=== PATIENT | male | born 1960 | race Caucasian/White ===

== ENCOUNTER 2020-03-01 00:44 | Outpatient (CLI) | payer BC, SELFPAY ==
[2020-03-01 18:59] LABS: SARS-CoV-2 RNA PCR Negative
== END 2020-03-01 00:45 | disposition home or self-care (01) ==
LOC: ANHCOVIDDT 00:44
PROVIDERS: PCP Internal Medicine; Visit Provider Internal Medicine Gastroenterology
DX: Z01.818 Encounter for other preprocedural examination (principal); Z20.828 Contact with and (suspected) exposure to other viral communicable diseases
CPT/HCPCS: 87635; C9803; U0003

== ENCOUNTER → 2020-03-04 08:06 | Day surgery (SDC) | payer BC, SELFPAY ==
[2020-02-27 10:42] VITALS: BMI 28.3
--- NOTE | 2020-03-03 09:56 | WPDANESEPPF ---
Anes - Initial Pre Proc Eval Procedure: Operation Date: 03/04/20 12:45 Proposed Procedures p Screening Colonoscopy - Joon Mathis MD Date/Time: 03/03/20 09:56 Surgeon: Joon Mathis MD Pre Op Diagnosis: neoplasm screening Patient Data Age: 59 Gender: M Height: 1.7 m Weight: 82 kg Allergies Allergy/AdvReac Type Severity Reaction Status Date / Time No Known Allergies Allergy Verified 02/27/20 10:51 Home Medications Medication Instructions Recorded Confirmed Type aspirin [Adult Low Dose Aspirin] 81 mg PO DAILY 02/27/20 02/27/20 History fexofenadine [Lena] 180 mg PO DAILY PRN 02/27/20 02/27/20 History sodium,potassium,mag sulfates 17.5 See Rx Instructions PO .COMPLEX 02/29/20 Rx gram-3.13 gram-1.6 gram oral soln #354 ml Patient hx anesthesia problems: none Family hx anesthesia problems: none PMFSH Social History Social History Smoking packs per day: 0.5 Smoking cigarettes per day: 10.0 Years smoked: 8 Smoking pack-years: 4.00 Smoking status: Former smoker Tobacco type: cigarettes Alcohol intake: current Drinks per week: 5 Substance use: never Substance use type: does not use Living arrangements: with family Spiritual care concerns: No Anes - Eval Final PreProcedure Day of Procedure 03/03/20 09:56 Patient weight: overweight Heart: regular rate and rhythm Lungs: clear to auscultation and normal air movement Airway: Mallampati scale class II Neurological: alert and oriented Last oral intake: >/= 8 hours ASA classification: II Emergent: no Anesthetic plan: proceed Anesthesia type and monitoring: general GIVS and standard monitoring Informed Consent: The patient's anesthetic plan and its attendant risks and benefits were discussed with the patient/family/POA. Questions were solicited and answers provided to the satisfaction of the patient/family/POA.
[2020-03-04 10:37] VITALS: BP 154/101; PULSE 90; RESP 18; TEMP 36.3; O2SAT 100; BMI 28.1
[2020-03-04] MEDS: LACTATED RINGERS 1,000 ML 150 ML IV CONT (10:50)
--- NOTE | 2020-03-04 11:33 | PM.HPGS ---
History of Present Illness History of Present Illness Consent: Risks, benefits, and alternatives have been discussed and questions answered. Patient agrees to proceed with procedure. Chief complaint: neoplasm screening Narrative: Sae Torres is a 59 year old male here for first screening colonoscopy Review of Systems Constitutional: Constitutional: Denies headache(s) and Denies weakness Eyes: Eyes: Denies blurry vision ENT: Reports Normal hearing present, Denies headache(s) and Denies neck pain Cardiovascular: Cardiovascular: Denies chest pain and Denies dyspnea Respiratory: Respiratory: Denies dyspnea Gastrointestinal: Gastrointestinal: Reports no additional gastrointestinal complaints Genitourinary: Genitourinary: Denies dysuria Musculoskeletal: Musculoskeletal: Denies neck pain Integumentary/Breasts: Skin/Breast: Denies dry skin Neurologic: Reports Normal hearing present, Denies headache(s) and Denies weakness Psychiatric: Psychiatric: Denies anxiety Endocrine: Endocrine: Denies change in body appearance Hematologic/Lymphatic: Hematologic/Lymphatic: Denies easy bleeding Allergic/Immunologic: Allergic/Immunologic: Denies urticaria [facility] Past Medical History Medical History (Updated 03/04/20 @ 11:33 by Joon Mathis MD) Colon cancer screening Social History Social History Smoking packs per day: 0.5 Smoking cigarettes per day: 10.0 Years smoked: 8 Smoking pack-years: 4.00 Smoking status: Former smoker Tobacco type: cigarettes Alcohol intake: current Drinks per week: 5 Substance use: never Substance use type: does not use Living arrangements: with family Spiritual care concerns: No Meds Home Medications and Allergies Home Medications Medication Instructions Recorded Confirmed Type aspirin [Adult Low Dose Aspirin] 81 mg PO DAILY 02/27/20 02/27/20 History fexofenadine [Lena] 180 mg PO DAILY PRN 02/27/20 02/27/20 History sodium,potassium,mag sulfates 17.5 See Rx Instructions PO .COMPLEX 02/29/20 Rx gram-3.13 gram-1.6 gram oral soln #354 ml Allergies Allergy/AdvReac Type Severity Reaction Status Date / Time No Known Allergies Allergy Verified 02/27/20 10:51 Vital Signs Vital Signs - 24 hr 03/04/20 10:37 Temperature 97.3 F L Pulse Rate 90 Respiratory Rate 18 Blood Pressure 154/101 H Pulse Oximetry 100 Exam Const: General: comfortable and no acute distress HENMT: General nose exam: Normal nares present Eyes: General: appearance normal, both eyes and all related structures Neck: Neck: no JVD Resp: Auscultation: clear to auscultation bilaterally Cardio: Rate: regular rate Rhythm: regular rhythm GI: Inspection: non-distended GI Palp: Yes Soft to palpation Skin: General skin exam: normal color Neuro: General: gait normal Speech: normal speech Extrem: General: normal to inspection Psych: Mental Status: mental status grossly normal Assessment and Plan Assessment and plan (1) Colon cancer screening: Code(s): Z12.11 - Encounter for screening for malignant neoplasm of colon Status: Acute Assessment and Plan: will proceed with colonoscopy
[2020-03-04 11:54] VITALS: BP 102/75; PULSE 80; RESP 21; O2SAT 94
[2020-03-04 12:04] VITALS: BP 104/76; PULSE 72; RESP 19; O2SAT 96
[2020-03-04 12:14] VITALS: BP 107/78; PULSE 71; RESP 22; O2SAT 97
== END ==
PROVIDERS: PCP Internal Medicine; Visit Provider Internal Medicine Gastroenterology
PROC: 0DJD8ZZ Inspection of Lower Intestinal Tract, Via Natural or Artificial Opening Endoscopic (ICD-10-PCS; CPT 45378; principal; 2020-03-04 12:45)
DX: Z12.11 Encounter for screening for malignant neoplasm of colon (principal); D12.2 Benign neoplasm of ascending colon; K57.30 Diverticulosis of large intestine without perforation or abscess without bleeding; K64.8 Other hemorrhoids; Z79.82 Long term (current) use of aspirin; Z87.891 Personal history of nicotine dependence
CPT/HCPCS: 45385; 88305; J2704; J7120

== ENCOUNTER 2024-12-26 03:01 | Day surgery (SDC) | payer BC, SELFPAY ==
--- OUTSIDE RECORDS SUMMARY | 2012-06-12 06:40 | XMS_ITS | Continuity of Care Document ---
Author Organization [facility] Address [id number] [place] [address] Phone Care Team Providers Care Clinical Pharmacist Name Role Phone Alexandro Doran MD Unavailable Unavailable Medications Medication Instructions Dosage Effective Dates (start - stop) Status Comments NASONEX 50 MCG NASAL SPRAY spray 2 spray by intranasal route every day in each nostril - Active PATADAY 0.2% EYE DROPS instill 1 drop by ophthalmic route every day into affected eye(s) - Active FEXOFENADINE HCL 180 MG TABLET 1 QD-daily - Active NASONEX 50 MCG NASAL SPRAY spray 2 spray by intranasal route every day in each nostril - No Longer Active Advance Directives Directive Yes / No Effective Date File Name No Information Encounters Encounter Description Practice Location Reason(s) For Visit Diagnoses Date Provider Providers Copied on Encounter [facility], [address], [place], [place], [id number], [place] tel:[phone] [facility] Allergic rhinitis due to other allergenOther chronic allergic conjunctivitis 3 Espinoza Mc. [address], [id number] , . tel: [phone] Referring Provider: Tony Guy, [facility] [place] [address], [place], [address]. tel:[phone] [facility], [id number] [place] [address], [id number], tel:[phone] [facility] Allergic rhinitis due to other allergenOther chronic allergic conjunctivitis 2 Espinoza Alexandro. [address] [place] [address], [id number] , . tel: [phone] Referring Provider: Tony Guy, [address] [place] [address], [facility]. tel:[phone] [facility] [employer], [address] [place] [address], [id number], tel:[phone] [facility] Allergic rhinitis due to other allergenOther chronic allergic conjunctivitis May- 1 Espinoza Alexandro. [address] [place] [address], [id number] , . tel: [phone] Referring Provider: Tony Guy, [address] [place] [address], [facility]. tel:[phone] [facility] [employer], [address] [place] [address], [id number], tel:[phone] [facility] ALLERGIC RHINITIS NECAC ATOPIC CONJUNCTIVITIS 0 Espinoza Mc. [address] [place] [address], [id number] , . tel: [phone] Family History Family Member Type Diagnosis Age At Onset No Information Payers Payer name Insurance type Covered democrat ID Authoriza tion(s) No Information Social History Type Description Quantity Date Captured Comments Alcohol Use Details Unknown Caffeine Use Details Unknown Tobacco Use Status No Information Smoking Status Never smoker Sex Male Vital Signs Date / Time: Height Weight BMI Pulse Rate Blood Pressure Temperature Respiratory Rate Body Surface Area Head Circumference Head Circ. Percentile Wt./Andres. Percentile BMI percentile Pulse Ox Inhaled Ox 11:50 AM 67.00 in 175.00 lbs 27.4 1 kg/m eter (2) 59 /min 126/85 mm[Hg] Chief Complaint And Reason For Visit No Information Reason For Referral Reason For Referral No Information History Of Present Illness Encounter Date Complaint History Of Prese nt Illness No Information Functional Status Date Functional Assessmen t No Information Instructions Date Instruction Additional Infor mation No Information Assessments Type Assessment Date No Information Patient Care Teams Name Effective Dates (start - stop) Status Members No Information
--- OUTSIDE RECORDS SUMMARY | 2013-08-29 05:45 | XMS_ITS | Continuity of Care Document ---
Author Organization [facility] Address [address] [place] [address] Phone Care Team Providers Care Bundle Sorter Name Role Phone Pato Santana MD Unavailable Unavailable Allergies, Adverse Reactions, Alerts Substance Reaction Status Criticality No Known Allergies Active No Inform ation Medications Medication Instructions Dosage Effective Dates (start - stop) Status Comments No Drug Therapy Prescribed Procedures Procedure Date OFFICE/OUTPATIENT VISIT NEW Advance Directives Directive Yes / No Effective Date File Name No Information Encounters Encounter Description Practice Location Reason(s) For Visit Diagnoses Date Provider Providers Copied on Encounter [facility], [address] [place] [address], [facility], tel:[phone] [facility] Gastrocnemius strain 4 Esther Whyte. [address] [place] [address], [id number] . tel: [phone] OFFICE/OUTPAT IENT VISIT [facility], [address] [place] [address] [address], [place], [address], tel:[phone] [facility] Rt Tib/Fib Injury (chief complaint) Gastrocnemius strain 4 Esther Whyte. [address] [place], [place], [id number] . tel: [phone] Family History Family Member Type Diagnosis Age At Onset No Information Payers Payer name Insurance type Covered alliance party ID Authoriza tion(s) No Information Social History Type Description Quantity Date Captured Comments Sex Male Smoking Status No Information Chief Complaint And Reason For Visit No Information Reason For Referral Reason For Referral No Information Plan Of Treatment Date Type Action Status Referral Ordered: AMISH SANDERSON 2 VIEWS RT ordered History Of Present Illness Encounter Date Complaint History Of Prese nt Illness No Information Functional Status Date Functional Assessmen t No Information Medications Administered Medication Instructions Dosage Effective Dates (start - stop) Status Comments No Drug Therapy Prescribed Instructions Date Instruction Additional Infor mation No Information Assessments Type Assessment Date assessment Gastrocnemius strain Patient Care Teams Name Effective Dates (start - stop) Status Members No Information
[2024-12-18 11:11] VITALS: BMI 27.6
--- OUTSIDE RECORDS SUMMARY | 2024-12-26 03:05 | XMS_ITS | Patient Health Record ---
Author Organization [facility] [place] ([address]) Address [address] [place] [address] Care Team Providers Care Coin Machine Assembler Name Role Phone Eulalia Whalen Primary Care Provider UnavailNivia Barker Unavailable [phone] Allergies Allergen (clinical drug ingredient) Drug/Non Drug Allergy documented on EMR Reaction Allergy Type Onset Date Status None (uncoded) Unknown Allergy Activ e Results Component Value Reference Range Notes RESPIRATORY ALLERGY PROFILE REGION VIII: [place], [place] Reviewed date:12/20/2024 04:27:55 PM Interpretation:Normal Performing Lab:DINESH, [facility], [address] [facility] [place], [address] Tray Almonte MD Notes/Report: FASTING: NO FASTING:NO NON-FASTING DERMATOPHAGOIDES PTERONYSSIN US (D1) IGE <0.10 CLASS 0 DERMATOPHAGOIDES FARINAE (D2 ) IGE <0.10 CLASS 0 PENICILLIUM NOTATUM (M1) IGE <0.10 CLASS 0 CLADOSPORIUM HERBARUM (M2) IGE <0.10 CLASS 0 ASPERGILLUS FUMIGATUS (M3) IGE <0.10 CLASS 0 ALTERNARIA ALTERNATA (M6) IGE 0.81 CLASS 2 COCKROACH (I6) IGE <0.10 CLASS 0 MAPLE (BOX ELDER) (T1) IGE 1.40 CLASS 2 MOUNTAIN CEDAR (T6) IGE 0.22 CLASS 0/1 WALNUT TREE (T10) IGE 1.80 CLASS 2 [place] (T11) IGE 1.45 CLASS 2 COTTON[place]OD (T14) IGE 1.04 CLASS 2 WHITE GIBSON (T15) IGE 2.23 CLASS 2 OAK (T7) IGE 1.75 CLASS 2 ELM (T8) IGE 1.80 CLASS 2 HICKORY/PECAN TREE (T22) IGE 2.08 CLASS 2 WHITE MULBERRY (T70) IGE 0.17 CLASS 0/1 BERMUDA GRASS (G2) IGE 3.14 CLASS 2 JENNIFER GRASS (G6) IGE 4.61 CLASS 3 COMMON RAGWEED (SHORT) (W1) IGE 2.80 CLASS 2 ROUGH PIGWEED (W14) IGE 0.52 CLASS 1 TUNISIAN THISTLE (W11) IGE 0.83 CLASS 2 ROUGH DALTON ELDER (W16) IGE 0.59 CLASS 1 MOUSE URINE PROTEINS (E72) IGE <0.10 CLASS 0 IMMUNOGLOBULIN E 227 <CC=289 kU/L CAT DANDER (E1) IGE 1.11 CLASS 2 DOG DANDER (E5) IGE 0.41 CLASS 1 CBC (INCLUDES DIFF/PLT) Reviewed date:12/20/2024 04:26:59 PM Interpretation:Normal Performing Lab:[place], [facility], [address], [place], [address] Tray Almonte MD Notes/Report: NON-FASTING FASTING:NO FASTING: NO WHITE BLOOD CELL COUNT 7.4 3.8-10.8 Thousand/ uL RED BLOOD CELL COUNT 5.03 4.20-5.80 Million/uL HEMOGLOBIN 15.2 13.2-17.1 g/dL HEMATOCRIT 46.2 38.5-50.0 % MCV 91.8 80.0-100.0 fL MCH 30.2 27.0-33.0 pg MCHC 32.9 32.0-36.0 g/dL For adults, a slight decrease in the calculated MCHC value (in the range of 30 to 32 g/dL) is most likely not clinically significant; however, it should be interpreted with caution in correlation with other red cell parameters and the patient's clinical condition. RDW 12.6 11.0-15.0 % PLATELET COUNT 204 140-400 Thousand/uL MPV 11.1 7.5-12.5 fL ABSOLUTE NEUTROPHILS 4433 3414-3152 cells/uL ABSOLUTE LYMPHOCYTES 2198 850-3900 cells/uL ABSOLUTE MONOCYTES 525 200-950 cells/uL ABSOLUTE EOSINOPHILS 192 15-500 cells/uL ABSOLUTE BASOPHILS 52 0-200 cells/uL NEUTROPHILS 59.9 LYMPHOCYTES 29.7 MONOCYTES 7.1 EOSINOPHILS 2.6 BASOPHILS 0.7 INTERPRETATION Reviewed date:12/20/2024 04:27:23 PM Interpretation:Interpretation Performing Lab:DINESH [facility], [address] [place], [address] Tray Almonte MD Notes/Report: NON-FASTING FASTING:NO FASTING: NO INTERPRETATION Specific Level of Allergen IGE Class kU/L Specific IGE Antibody ----- --------- 0 <0.10 Absent/Undetectable 0/1 0.10-0.34 Very Low Level 1 0.35-0.69 Low Level 2 0.70-3.49 Moderate Level 3 3.50-17.4 High Level 4 17.5-49.9 Very High Level 5 50-100 Very High Level 6 >100 Very High Level The clinical relevance of allergen results of 0.10-0.34 kU/L are undetermined and intended for specialist use. Allergens denoted with a include results using one or more analyte specific reagents. In those cases, the test was developed and its analytical performance characteristics have been determined by [facility]. It has not been cleared or approved by the U.S. Food and Drug Administration. This assay has been validated pursuant to the CLIA regulations and is used for clinical purposes. CAT DANDER COMPONENT PANEL Reviewed date:12/20/2024 04:27:11 PM Interpretation:Normal Performing Lab:DINESH [facility], [address] [place], [address] Tray Almonte MD Notes/Report: NON-FASTING FASTING:NO FASTING: NO Fel d 1 (e94) IgE 1.59 <0.10 kU/L Fel d 2 (e220) IgE <0.10 <0.10 kU/L Fel d 4 (e228) IgE <0.10 <0.10 kU/L Fel d 7 (e231) IgE <0.10 <0.10 kU/L Component testing for samples with positive extract results may help to rule out cross-reactivity and confirm that allergy is present. The more components a patient is sensitized to, the higher the likelihood of a reaction when exposed to cats. DOG DANDER COMPONENT PANEL Reviewed date:12/20/2024 04:27:06 PM Interpretation:Normal Performing Lab:DINESH, [facility], [address], [place], [address] Tray Almonte MD Notes/Report: NON-FASTING FASTING:NO FASTING: NO Can f 1 (e101) IgE <0.10 <0.10 kU/L Can f 2 (e102) IgE <0.10 <0.10 kU/L Can f 3 (e221) IgE <0.10 <0.10 kU/L Can f 4 (e229) IgE <0.10 <0.10 kU/L Can f 5 (e226) IgE <0.10 <0.10 kU/L Can f 6 (e230) IgE <0.10 <0.10 kU/L Component testing for samples with positive extract results may help to rule out cross-reactivity and confirm that allergy is present. The more components a patient is sensitized to, the higher the likelihood of a reaction when exposed to dogs. Sensitization to Can f 5 only may indicate that the patient can tolerate female dogs. Reason For Referral No Information Medications Medication SIG (Take, Route, Frequency, Duration) Notes Start Date End Date Status Lisinopril 10 MG Oral; Duration: 30 Days Active Rosuvastatin Calcium 5 MG TAKE 1 TABLET BY MOUTH AT BEDTIME Oral; Duration: 30 Days Active EPINEPHrine 0.3 MG/0.3ML Injection; Dura tion: 1 Days Active Cetirizine HCl 10 MG 1 tablet Orally Onc e a day; Duration: 30 days 12/17/2024 Active Azelastine HCl 137 MCG/SPRAY 2 sprays in each nostril Nasally Twice a day; Duration: 30 days 12/17/2024 Active Clarinex-D 12 Hour 2.5-120 MG 1 tablet Orally every 12 hrs Active Immunizations Vaccine Route Administration Date Status Comme nts NOC Tdap Unknown 11/24/2022 Administered Portal Infor mation NOC Tdap Unknown 11/24/2022 Administered Portal Infor mation [facility] Quadrivalent Unknown 01/06/2023 Administered Po rtal Information [facility] Quadrivalent Unknown 01/06/2023 Administered Po rtal Information Social History Tobacco Use: Social History Observation Description Date Details (start date - stop date) Never Smoker NA - NA Sex Assigned At : Social History Observation Description Sex Assigned At Male Tobacco Control (Standard) Question Answer Notes Tobacco use: Nonsmoker AUDIT-C (Standard) Question Answer Notes Did you have a drink contain ing alcohol in the past year? Yes How often did you have a dri nk containing alcohol in the past year? 2 to 3 times a week (3 points) How many drinks did you have on a typical day when you were drinking in the past year? 3 or 4 drinks (1 point) How often did you have six o r more drinks on one occasion in the past year? Never (0 point) Points 4 Interpretation Positive Problems Problem Type SNOMED Code ICD Code Onset Dates Problem Status W/U Status Risk Notes Problem Allergic rhinitis caused by pollen (disorder) (44886446) Allergic rhinitis due to pollen (J30.1) Active confirmed Problem Chronic rhinitis (63494301) Chronic rhinitis (J31.0) Active confirmed Problem Hypertrophy of nasal turbinates (43552006) Hypertrophy of nasal turbinates (J34.3) Active confirmed Problem Dysphagia (93389874) Dysphagia, unspecified (R13.10) Active confirmed Vital Signs Oximetry 98 % 12/17/2024 Blood pressure diastolic 81 mm Hg 12/17/2024 Height 67 in 12/17/2024 Blood pressure systolic 121 mm Hg 12/17/2024 Weight 182.0 lbs 12/17/2024 BMI 28.5 kg/m2 12/17/2024 Encounters Encounter Location Date Provider Diagnosis [facility] [address] [place] [address] 12/17/2024 Nivia Elizalde Hypertrophy of nasal turbinates J34.3 ; Allergic rhinitis due to pollen J30.1 ; Chronic rhinitis J31.0 ; Dysphagia, unspecified R13.10 and Elevated blood-pressure reading, without diagnosis of hypertension R03.[address] [address] 12/20/2024 Nivia Elizalde Assessments Encounter Date Diagnosis (ICD Code) Assessment Notes Treatment Notes Treatment Clinical Notes Section Notes 12/17/2024 Allergic rhinitis due to pollen (ICD-10 - J30.1) Sae has history of ARC, previously underwent testing with Dr. Doran. His results showed positive results to seasonal and perennial allergens. - Sae's primary complaint today is food/pill sticking, please see plan above. In regard to strictly his upper airway symptoms, he feels these are well-controlled . - We will obtain ImmunoCaps. He is scheduled for an endoscopy next week, if symptoms are due to EoE, we plan to update his SPT. - Discussed trial of Zyrtec and azelastine. - Return in 4-6 weeks for further evaluation and management 12/17/2024 Hypertrophy of nasal turbinates (ICD-10 - J34.3) See plan above 12/17/2024 Chronic rhinitis (ICD-10 - J31.0) See plan above 12/17/2024 Dysphagia, unspecified (ICD-10 - R13.10) Sae presents today with a history of food/pill sticking ongoing for my whole life. He has noticed worsening symptoms lately. He discussed with his PCP, who suggested GI evaluation. Sae is scheduled for an endoscopy next week. - I highly suspect EoE based on Sae's description of symptoms and history of atopic disease. Given his endoscopy is next week, we will await results. We briefly discussed EoE and potential treatment options pending the results of his endoscopy. - Discussed strict journal for symptoms. - Return in 4-6 weeks as above 12/17/2024 Elevated blood-pressure reading, without diagnosis of hypertension (ICD-10 - R03.0) BP elevated today without symptoms of urgency or emergency. Continue serial checks and follow-up with PCP 12/17/2024 Other Plan Of Treatment Pending Test Test Name Order Date CBC (INCLUDES DIFF/PLT) 12/17/2024 Next Appt Details Provider Name:Nivia mota, 01/21/2025 09:30:00 AM, [address], [address], [place], [address], Insurance Providers Payer Name Payer Address Payer Phone Subscriber Number Group Number Insured Name Patient Relationship to Insured Coverage Start Date Coverage End Date [facility] [address] [place] [address] [id number] Sae Torres Self - patient is the insured Medical (General) History Surgical History Surgery Date(Month/Year) None Hospitalization History Reason Date(Month/Year) None
--- NOTE | 2024-12-26 07:12 | WPDANESEPPF ---
Anes - Initial Pre Proc Eval Procedure: Operation Date: 12/26/24 12:30 Proposed Procedures p EGD & Screening Colonoscopy - Joon Mathis MD Date/Time: 12/26/24 07:12 Surgeon: Joon Mathis MD Pre Op Diagnosis: Dysphagia, unspecified Patient Data Age: 64 Gender: M Height: 1.7 m Weight: 80 kg Allergies Allergy/AdvReac Type Severity Reaction Status Date / Time grass pollen Allergy Mild Congested Verified 12/26/24 11:02 tree and shrub pollen Allergy Mild congestion Verified 12/26/24 11:02 rag weed Allergy Mild congestion Uncoded 12/18/24 11:09 Home Medications ?Medication ?Instructions ?Recorded ?Confirmed ?Type aspirin 81 mg tablet 81 mg PO DAILY 02/27/20 12/26/24 History lisinopril 10 mg tablet 10 mg PO DAILY #90 tabs 08/13/24 12/26/24 Rx loratadine 10 mg tablet (Claritin) 10 mg PO DAILY 11/05/24 12/26/24 History rosuvastatin 5 mg tablet 5 mg PO .hs #90 tabs 11/22/24 12/26/24 Rx cetirizine 10 mg tablet (24Hour 10 mg PO DAILY PRN allergy symptoms 12/18/24 12/26/24 History Allergy) Patient hx anesthesia problems: none Family hx anesthesia problems: none Results Review: All pre-operative results and documents have been reviewed as part of the pre-operative evaluation. [facility] Past Medical History Medical History (Updated 12/25/24 @ 14:08 by Danielito Gilmore DO) Essential hypertension Hyperlipidemia Allergies Colon cancer screening Surgical History Surgical History No pertinent past surgical history Family History Family History Mother Diabetes mellitus Father Heart disease Social History Social History (Updated 11/02/24 @ 13:20 by Alexander Rodriguez) Social History: Somewhat confident with medical forms 10/30/24 Smoking packs per day: 0.5 Smoking cigarettes per day: 10.0 Years smoked: 8 Smoking pack-years: 4.00 Smoking status: Former smoker Tobacco type: cigarettes Alcohol intake: current Drinks per week: 5 Substance use: never Substance use type: does not use Lack of Transportation: No Lack of Food: Never True Current Housing: I Have Housing Concerned About Future Housing: No Difficulty Paying Gas/Electric Bills: No Difficulty Paying for Meds: No Currently Unemployed: No Education: Associate Degree Difficulty w/ Childcare or Family Care: No Living arrangements: with family Occupation/Education: occupation Additional occupation/education comments: [employer] Gender identity (if verbalized by the patient): Male Spiritual care concerns: No Anes - Eval Final PreProcedure Day of Procedure 12/26/24 07:12 Patient weight: overweight Heart: regular rate and rhythm Lungs: clear to auscultation Airway: Mallampati scale class II Neurological: alert and oriented Last oral intake: >/= 8 hours ASA classification: II Emergent: no Anesthetic plan: proceed Anesthesia type and monitoring: general GIVS and standard monitoring Results Review: All pre-operative results and documents have been reviewed as part of the pre-operative evaluation. Informed Consent: The patient's anesthetic plan and its attendant risks and benefits were discussed with the patient/family/POA. Questions were solicited and answers provided to the satisfaction of the patient/family/POA.
[2024-12-26 11:04] VITALS: BP 137/91; PULSE 80; RESP 18; TEMP 36.2; O2SAT 100
[2024-12-26] MEDS: LACTATED RINGERS 1,000 ML 150 ML IV CONT (11:12)
--- NOTE | 2024-12-26 11:39 | PM.HPGS ---
History of Present Illness History of Present Illness Consent: Risks, benefits, and alternatives have been discussed and questions answered. Patient agrees to proceed with procedure. Chief complaint: Dysphagia, unspecified Narrative: Sae Eubanks Wirubenner is a 64 year old male her for first egd, h/o dysphagia to solids and pills, last colonoscopy with polyp in 2019 Review of Systems Review of Systems: All systems reviewed & are unremarkable except as noted in HPI and below PMFSH Past Medical History Medical History (Updated 12/26/24 @ 11:40 by Joon Mathis MD) Colon polyp Essential hypertension Hyperlipidemia Allergies Colon cancer screening Surgical History Surgical History No pertinent past surgical history Family History Family History Mother Diabetes mellitus Father Heart disease Social History Social History (Updated 11/02/24 @ 13:20 by Alexander Rodriguez) Social History: Somewhat confident with medical forms 10/30/24 Smoking packs per day: 0.5 Smoking cigarettes per day: 10.0 Years smoked: 8 Smoking pack-years: 4.00 Smoking status: Former smoker Tobacco type: cigarettes Alcohol intake: current Drinks per week: 5 Substance use: never Substance use type: does not use Lack of Transportation: No Lack of Food: Never True Current Housing: I Have Housing Concerned About Future Housing: No Difficulty Paying Gas/Electric Bills: No Difficulty Paying for Meds: No Currently Unemployed: No Education: Associate Degree Difficulty w/ Childcare or Family Care: No Living arrangements: with family Occupation/Education: occupation Additional occupation/education comments: [employer] Gender identity (if verbalized by the patient): Male Spiritual care concerns: No Meds Home Medications and Allergies Home Medications ?Medication ?Instructions ?Recorded ?Confirmed ?Type aspirin 81 mg tablet 81 mg PO DAILY 02/27/20 12/26/24 History lisinopril 10 mg tablet 10 mg PO DAILY #90 tabs 08/13/24 12/26/24 Rx loratadine 10 mg tablet (Claritin) 10 mg PO DAILY 11/05/24 12/26/24 History rosuvastatin 5 mg tablet 5 mg PO .hs #90 tabs 11/22/24 12/26/24 Rx cetirizine 10 mg tablet (24Hour 10 mg PO DAILY PRN allergy symptoms 12/18/24 12/26/24 History Allergy) Allergies Allergy/AdvReac Type Severity Reaction Status Date / Time grass pollen Allergy Mild Congested Verified 12/26/24 11:02 tree and shrub pollen Allergy Mild congestion Verified 12/26/24 11:02 rag weed Allergy Mild congestion Uncoded 12/18/24 11:09 Vital Signs Vital Signs - 24 hr 12/26/24 11:04 Temperature 97.2 F L Pulse Rate 80 Respiratory Rate 18 Blood Pressure 137/1 L Pulse Oximetry 100 Oxygen Delivery Room Air Exam Const: General: comfortable and no acute distress HENMT: Face/Nose/Sinus: Normal nares present Eyes: General: appearance normal, both eyes and all related structures Neck: Neck: no JVD Resp: Auscultation: clear to auscultation bilaterally Cardio: Rate: regular rate Rhythm: regular rhythm GI: Inspection: non-distended GI Palp: Yes Soft to palpation Skin: General skin exam: normal color Extrem: General: normal to inspection Psych: Mental Status: mental status grossly normal Assessment and Plan Assessment and plan (1) Dysphagia: Code(s): R13.10 - Dysphagia, unspecified Status: Acute Assessment and Plan: egd (2) Colon polyp: Code(s): K63.5 - Polyp of colon Status: Acute Assessment and Plan: colonoscopy
--- NOTE | 2024-12-26 11:51 | S_PTH ---
PATIENT: Sae Torres LOC: [facility]#:[id number] AGE/SX: 64/M ROOM: RE12/26/[address]: Joon Mathis MD : 1960 BED: DIS: 12/26/2024 SPEC #: [id number] RECD: 12/26/24 12:59 STATUS: RAHUL REGautam #: [id number] ALDO: 12/26/24 11:[address]: Joon Mathis DEPT: [facility] Surgical RECD BY: Destin Figueroa ENTERED: 12/26/24 13:01 SP TYPE: Surgical OTHR DR: Eulalia Whalen PALiaC Tissues: A - Esophageal Biopsy B - Esophageal Biopsy C - Gastric Biopsy Procedures: Hematoxylin and Eosin Stain Gross and Microscopic Level 4
--- NOTE | 2024-12-26 11:56 | SUR.OPER ---
EGD: [id number] Colon: [id number]
[2024-12-26 12:06] VITALS: BP 92/53; PULSE 71; RESP 18; O2SAT 94
[2024-12-26 12:16] VITALS: BP 87/60; PULSE 63; RESP 17; O2SAT 94
[2024-12-26 12:26] VITALS: BP 91/56; PULSE 68; RESP 27; O2SAT 96
== END 2024-12-26 12:52 | disposition home or self-care (01) ==
PROVIDERS: PCP Physician Assistant Medical; Referring Provider Physician Assistant Medical; Visit Provider Internal Medicine Gastroenterology
PROC: 0DJ08ZZ Inspection of Upper Intestinal Tract, Via Natural or Artificial Opening Endoscopic (ICD-10-PCS; CPT 45378; principal; 2024-12-26 12:30)
DX: Z12.11 Encounter for screening for malignant neoplasm of colon (principal); K64.8 Other hemorrhoids; K57.30 Diverticulosis of large intestine without perforation or abscess without bleeding; K22.2 Esophageal obstruction; K20.0 Eosinophilic esophagitis; K44.9 Diaphragmatic hernia without obstruction or gangrene; I10 Essential (primary) hypertension; E78.5 Hyperlipidemia, unspecified; Z79.82 Long term (current) use of aspirin; Z87.891 Personal history of nicotine dependence; Z86.0100 Personal history of colon polyps, unspecified; Z82.49 Family history of ischemic heart disease and other diseases of the circulatory system
CPT/HCPCS: 43249; 43239; 45378; 88305; C1726; J2003; J2704; J7120